=== PATIENT | male | born 1965 | race African-American/Black ===

== ENCOUNTER 2016-04-05 11:51 | Inpatient (IN) | payer BC ==
[2016-04-05 13:02] VITALS: BMI 22.1
--- NOTE | 2016-04-05 18:29 | HP ---
Admission [facility] Chief Complaint: I WANT TO GO TO REHAB Allergies/Adverse Reactions: Allergies Allergy/AdvReac Type Severity Reaction Status Date / Time Penicillins Allergy Verified 04/05/16 18:24 Pork/Porcine Containing Allergy Verified 04/05/16 18:24 Products History of Present Illness: 51 YEARS OLD MALE WITH LONG HISTORY OF COCAINE NICOTINE DEPENDENCE, HAS ASTHMA S /P SPINAL SURGERY, S/P LEFT KNEE AND FOOT FX, SCHIZOPHRENIA LONGEST SOBRIETY 16 YEARS IS ADMITTED TO REHAB Exam Limitations: No Limitations - Ebola screening Have you traveled outside of the country in the last 21 days: No Have you had contact with anyone from an Ebola affected area: No Have you been sick,other than usual withdrawal symptoms: No Do you have a fever: No - Review of Systems Constitutional: Loss of Appetite, Unexplained wgt Loss EENT: reports: Other (EYE GLASSES) Respiratory: reports: Cough, SOB with Exertion Cardiac: reports: No Symptoms Reported GI: reports: No Symptoms Reported : reports: No Symptoms Reported Musculoskeletal: reports: Back Pain, Joint Pain Integumentary: reports: No Symptoms Reported Neuro: reports: No Symptoms reported Endocrine: reports: No Symptoms Reported Hematology: reports: No Symptoms Reported Psychiatric: reports: Judgement Intact, Mood/Affect Appropiate, Orientated x3 Other Systems: Reviewed and Negative Patient History - Patient Medical History Hx Anemia: No Hx Asthma: Yes Hx Chronic Obstructive Pulmonary Disease (COPD): No Hx Cancer: No Hx Cardiac Disorders: No Hx Congestive Heart Failure: No Hx Hypertension: No Hx Hypercholesterolemia: No Hx Pacemaker: No HX Cerebrovascular Accident: No Hx Seizures: No Hx Dementia: No Hx Diabetes: No Hx Gastrointestinal Disorders: No Hx Liver Disease: No Hx Genitourinary Disorders: No Hx Sexually Transmitted Disorders: No Hx Renal Disease (ESRD): No Hx Thyroid Disease: No Hx Human Immunodeficiency Virus (HIV): No Hx Hepatitis C: No Hx Depression: No Hx Suicide Attempt: No Hx Bipolar Disorder: No Hx Schizophrenia: Yes (AUDITORY HALLUCINATION) - Patient Surgical History Past Surgical History: Yes Hx Neurologic Surgery: Yes (1992 SPINE) Hx Cataract Extraction: No Hx Cardiac Surgery: No Hx Lung Surgery: No Hx Breast Surgery: No Hx Breast Biopsy: No Hx Abdominal Surgery: No Hx Appendectomy: No Hx Cholecystectomy: No Hx Genitourinary Surgery: No Hx Orthopedic Surgery: Yes (KNEE 1983) Other Surgical History: LEFT FOOT 2000 Anesthesia Reaction: No - PPD History Previous Implant?: Yes Documented Results: Negative w/o proof Implanted On Prior [facility] Admission?: No PPD to be Administered?: Yes - Smoking Cessation Smoking history: Current every day smoker Have you smoked in the past 12 months: Yes Aproximately how many cigarettes per day: 10 Cigars Per Day: 0 Hx Chewing Tobacco Use: No Initiated information on smoking cessation: Yes 'Breaking Loose' booklet given: 04/05/16 - Substance & Tx. History Hx Alcohol Use: No Hx Substance Use: Yes Substance Use Type: Cocaine Hx Substance Use Treatment: Yes - Substances Abused Cocaine Route: Smoking Frequency: Daily Amount used: 1 OZ Age of first use: 33 Date of Last Use: 04/04/16 Family Disease History - Family Disease History Family Disease History: Heart Disease: Father, [place]: Grandparent, Mother Admission Physical Exam [facility] - Vital Signs Vital Signs: Vital Signs - 24 hr 04/05/16 12:59 Pulse Rate 74 Respiratory 18 Rate Blood Pressure 138/89 - Physical General Appearance: Yes: No Apparent Distress, Appropriately Dressed, Thin HEENTM: Yes: Hearing grossly Normal, Normal ENT Inspection, Normocephalic, Normal Voice Respiratory: Yes: Lungs Clear, Normal Breath Sounds, No Accessory Muscle Use, Wheezing, Expiration Neck: Yes: Supple, Trachea in good position Breast: Yes: Breasts Symetrical Cardiology: Yes: Regular Rhythm, Regular Rate, S1, S2 Abdominal: Yes: Non Tender, Soft Genitourinary: Yes: Within Normal Limits Back: Yes: Normal Inspection Musculoskeletal: Yes: full range of Motion, Gait Steady, Back pain, Muscle Pain Extremities: Yes: Normal Range of Motion, Non-Tender Neurological: Yes: Fully Oriented, Alert, Motor Strength 5/5, Normal Response Integumentary: Yes: Warm Lymphatic: Yes: Within Normal Limits - Diagnostic (1) Cocaine dependence, uncomplicated Current Visit: Yes Status: Acute (2) Nicotine dependence Current Visit: Yes Status: Acute Qualifiers: Nicotine product type: cigarettes Substance use status: uncomplicated Qualified Code(s): F17.210 - Nicotine dependence, cigarettes, uncomplicated (3) Asthma Current Visit: Yes Status: Acute Qualifiers: Asthma severity: mild persistent Asthma complication type: with status asthmaticus Qualified Code(s): J45.32 - Mild persistent asthma with status asthmaticus (4) S/P cervical spinal fusion Current Visit: Yes Status: Resolved (5) S/P left knee surgery Current Visit: Yes Status: Resolved (6) Status post left foot surgery Current Visit: Yes Status: Resolved (7) Weight loss Current Visit: Yes Status: Acute Cleared for Admission S - Detox or Rehab [facility] Level of Care: Observation Bed Claeared for Rehab Admission: Yes [facility] Breath Alcohol Content Breath Alcohol Content: 0 Urine Drug Screen - Results Drug Screen Negative: No Urine Drug Screen Results: CHASE-Cocaine
[2016-04-05] MEDS ORDERED: P-EPHED 60MG/TRIPROLIDI 2.5MG TABLET PO PRN (18:37)
[2016-04-05] MEDS ORDERED: IBUPROFEN 400 MG TABLET (FP) PO PRN (18:37)
[2016-04-05] MEDS ORDERED: MAGNESIUM HYDROX 2400MG/30ML ORAL SUSPENSION 30 ML CUP PO PRN (18:37)
[2016-04-05] MEDS ORDERED: MAGNESIUM CITRATE 300 ML BOTTLE PO PRN (18:37)
[2016-04-05] MEDS ORDERED: guaiFENesin/D-METHORPHAN HB 10 ML UNIT-DOSE CUPS PO PRN (18:37)
[2016-04-05] MEDS ORDERED: MAG HYDROX/AL HYDROX/SIMETH 30 ML UNIT-DOSE CUP PO PRN (18:37)
[2016-04-05] MEDS ORDERED: LOPERAMIDE HCL 2 MG CAPSULE PO PRN (18:37)
[2016-04-05] MEDS ORDERED: NICOTINE 14 MG/24 HOURS TOPICAL PATCH TD PRN (18:37)
[2016-04-05] MEDS ORDERED: MENTHOL/PHENOL 1 EACH UD MM PRN (18:37)
[2016-04-05] MEDS ORDERED: NICOTINE POLACRILEX 2 MG GUM BC PRN (18:37)
[2016-04-05] MEDS ORDERED: ACETAMINOPHEN 325 MG TABLET (FP) PO PRN (18:37)
[2016-04-05] MEDS ORDERED: hydrOXYzine PAMOATE 50 MG CAPSULE (FP) PO PRN (18:37)
[2016-04-05] MEDS ORDERED: ALBUTEROL SO4 2.5/IPRATROPIUM 0.5 INH SOL 3 ML VIAL.NEB. NEB PRN (18:39)
[2016-04-05 20:16] LABS: URINE APPEARANCE SLCLOUDY; URINE BILIRUBIN NEGATIVE (NEGATIVE); URINE BLOOD NEGATIVE (NEGATIVE); URINE COLOR YELLOW; URINE GLUCOSE (UA) NEGATIVE (NEGATIVE); URINE KETONE NEGATIVE (NEGATIVE); URINE NITRITE NEGATIVE (NEGATIVE); URINE PROTEIN NEGATIVE (NEGATIVE); URINE UROBILINOGEN NEGATIVE E.U./dl (0.2-1.0)
[2016-04-05 20:26] LABS: URINE LEUK ESTERASE 2+ (NEGATIVE)
[2016-04-05 20:47] LABS: URINE HYALINE CAST 2 /lpf; URINE MUCUS RARE; URINE RBC 3 /hpf (0-3); URINE WBC 42 /hpf (3-5)
[2016-04-05] MEDS: THIAMINE HCL 100 MG TABLET (FP) PO SCH (21:34)
[2016-04-05] MEDS: MINERAL OIL/PETROLAT/WATER TOPICAL CREAM 113 GM JAR TP SCH (21:34)
[2016-04-05] MEDS: TUBERCULIN PPD 5 TU/0.1ML VIAL ID ONE (21:35)
[2016-04-06] MEDS: TUBERCULIN PPD 5 TU/0.1ML VIAL ID ONE (00:25)
[2016-04-06] MEDS: PRENATAL VITAMINS W/ FOLIC ACID TABLET (FP) PO SCH (09:51)
[2016-04-06 10:35] LABS: ALBUMIN 4.1 g/dl (3.4-5.0); ALK PHOS 124 U/L (45-117); ANION GAP 6 (8-16); BILIRUBIN,TOTAL 0.4 mg/dL (0.2-1.0); CO2 28 mmol/L (21-32); CREATININE 1.2 mg/dL (0.7-1.3); GLUCOSE,RANDOM 107 mg/dL (74-106); SGOT/AST 30 U/L (15-37); SGPT/ALT 36 U/L (12-78); TOT PROT 7.2 g/dl (6.4-8.2)
[2016-04-06 10:56] LABS: HIV 1 & 2 AB NEGATIVE; HIV 1 AGp24 NEGATIVE
[2016-04-06 11:12] LABS: MCH 32.8 pg (25.7-33.7); MCHC 33.3 g/dl (32.0-35.9); MEAN CELL VOLUME 98.5 fl (80-96); MEAN PLT VOLUME 9.9 fl (7.5-11.1); PLATELET COUNT 157 K/MM3 (134-434); RDW 13.9 % (11.9-15.9); WHITE BLOOD COUNT 4.7 K/mm3 (4.0-10.0)
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
[2016-04-06] MEDS: ALBUTEROL SO4 6.7 GM HFA INHALER IH PRN (15:29)
[2016-04-06] MEDS: MINERAL OIL/PETROLAT/WATER TOPICAL CREAM 113 GM JAR TP SCH (21:46)
[2016-04-06] MEDS: THIAMINE HCL 100 MG TABLET (FP) PO SCH (21:47)
[2016-04-07] MEDS: PRENATAL VITAMINS W/ FOLIC ACID TABLET (FP) PO SCH (09:31)
[2016-04-07] MEDS: ALBUTEROL SO4 6.7 GM HFA INHALER IH PRN (09:32)
[2016-04-07] MEDS: THIAMINE HCL 100 MG TABLET (FP) PO SCH (21:31)
[2016-04-07] MEDS: MINERAL OIL/PETROLAT/WATER TOPICAL CREAM 113 GM JAR TP SCH (21:32)
[2016-04-08] MEDS: PRENATAL VITAMINS W/ FOLIC ACID TABLET (FP) PO SCH (10:08)
[2016-04-08] MEDS: ALBUTEROL SO4 6.7 GM HFA INHALER IH PRN (10:08)
[2016-04-08] MEDS: MINERAL OIL/PETROLAT/WATER TOPICAL CREAM 113 GM JAR TP SCH (21:26)
[2016-04-08] MEDS: diphenhydrAMINE HCL 50 MG CAPSULE PO PRN (21:26)
[2016-04-08] MEDS: THIAMINE HCL 100 MG TABLET (FP) PO SCH (21:26)
--- NOTE | 2016-04-09 09:47 | EKG ---
Test Reason : Blood Pressure : / mmHG Vent. Rate : 067 BPM Atrial Rate : 067 BPM P-R Int : 162 ms QRS Dur : 086 ms QT Int : 382 ms P-R-T Axes : 072 071 070 degrees QTc Int : 403 ms NORMAL SINUS RHYTHM MINIMAL VOLTAGE CRITERIA FOR LVH, MAY BE NORMAL VARIANT ST ELEVATION, CONSIDER EARLY REPOLARIZATION, PERICARDITIS, OR INJURY ABNORMAL ECG NO PREVIOUS ECGS AVAILABLE Confirmed by AMI HPAM MD ([id number]) on 04/07/2016 10:35:03 AM Also confirmed by AMI PHAM MD ([id number]), society editor AIDEN LOUIE ([id number]) on 04/09/2016 9:47:16 AM Referred By: Daniela Solares Confirmed By:AMI PHAM MD
[2016-04-09] MEDS: ALBUTEROL SO4 6.7 GM HFA INHALER IH PRN (09:48)
[2016-04-09] MEDS: PRENATAL VITAMINS W/ FOLIC ACID TABLET (FP) PO SCH (09:48)
--- NOTE | 2016-04-09 14:16 | PN ---
Psychiatric Progress Note Vital Signs: Vital Signs Period Temp Pulse Resp BP Sys/Novak Pulse Ox Last 24 Hr 97.8 F 64 18-18 126/85 Date of Session: 04/09/16 Chief Complaint:: "I hear voices" HPI: Patient is addresssing cocaine, cannabis use comorbid Schizophrenia. ROS: Asthma on meds, 2 plates on C4, C5 vertebrae s/p incident in 1992, pins to left knee and left foot in 1983. Current Medications: Active Medications Generic Name Dose Route Start Last Admin Trade Name Freq PRN Reason Stop Dose Admin Acetaminophen 650 mg 04/05/16 18:37 Tylenol - PO Q4H PRN PAIN Al Hydroxide/Mg Hydroxide 30 ml 04/05/16 18:37 Mylanta Oral Suspension - PO Q6H PRN DYSPEPSIA Albuterol Sulfate 2 puff 04/05/16 18:38 04/09/16 09:48 Ventolin Hfa Inhaler - IH 2 puff Q4H PRN Administration SHORT OF BREATH/WHEEZING Albuterol/Ipratropium 1 amp 04/05/16 18:39 Duoneb - NEB Q6H PRN SHORTNESS OF BREATH Budesonide/Formoterol Fumarate 2 puff 04/09/16 22:00 Symbicort 80/4.5mcg - IH BID AMISHA Colloidal Oatmeal 1 applic 04/05/16 20:03 Aveeno Soap - TP DAILY PRN HYGEINE Diphenhydramine HCl 50 mg 04/05/16 18:37 04/08/16 21:26 Benadryl - PO 50 mg HSMR1 PRN Administration INSOMNIA Eucalyptus/Menthol/Phenol/Sorbitol 1 each 04/05/16 18:37 Cepastat Lozenge - MM Q4H PRN SORE THROAT Guaifenesin 10 ml 04/05/16 18:37 Robitussin Dm - PO Q6H PRN COUGH Hydroxyzine Pamoate 50 mg 04/05/16 18:37 Vistaril - PO Q4H PRN AGITATION Ibuprofen 400 mg 04/05/16 18:37 Motrin - PO Q6H PRN SEVERE PAIN Loperamide HCl 4 mg 04/05/16 18:37 Imodium - PO Q6H PRN DIARRHEA Magnesium Citrate 300 ml 04/05/16 18:37 Citroma - PO Q48H PRN CONSTIPATION Magnesium Hydroxide 30 ml 04/05/16 18:37 Milk Of Magnesia - PO DAILY PRN CONSTIPATION Multi-Ingredient Lotion 1 applic 04/05/16 22:00 04/08/16 21:26 Eucerin (Small Jar) - TP 1 applic HS AMISHA Administration Naproxen 500 mg 04/09/16 22:00 Naprosyn - PO BID AMISHA Nicotine 14 mg 04/05/16 18:37 Nicoderm Patch - TD DAILY PRN WITHDRAWAL(CONT SUBST) Nicotine Polacrilex 2 mg 04/05/16 18:37 Nicorette Gum - BC Q2H PRN NICOTINE REPLACEMENT RX Multivit/Folic Acid/Iron 1 tab 04/06/16 10:00 04/09/16 09:48 Vitamins ([facility]) - PO 1 tab DAILY AMISHA Administration Pseudoephedrine/Triprolidine 1 combo 04/05/16 18:37 Actifed - PO TID PRN NASAL CONGESTION Quetiapine Fumarate 50 mg 04/09/16 22:00 Seroquel - PO HS AMISHA Quetiapine Fumarate 25 mg 04/09/16 14:00 Seroquel - PO Q4H PRN AGITATION Thiamine HCl 100 mg 04/05/16 22:00 04/08/16 21:26 Vitamin B1 - PO 100 mg HS AMISHA Administration Medication(s) Change(s): add Seroquel 25 mg po am and 50 po hs, PRN 25 mg po q 4hrs. Current Side Effect: No Lab tests ordered: No Lab tests reviewed: Yes Provider note:: Reviewed the chart, 's admission note appreciated, met with the patient, he reports has been hearing voces for the pasr 2 years , hears the male voices "sounds like me" telling him to do things, he reports he has a "bad temper", often to the fights, having mood swings being irritable and angry. States that voices come when he not on drugs. Reveiwed indications and properties of Seroquel with the the patient , will start PRN and 25 mg po am and 50 mg po hs, psychoeducation provided. PAtient was encouraged to reach out to the staff for help with any negative thoughts/feelings he might experince.Will monitor progress as neeed. Total face to face time:: 35 Mental Status Exam - Mental Status Exam Alert and Oriented to: Time, Place, Person Cognitive Function: Good Patient Appearance: Well Groomed Mood: Irritable Patient Behavior: Cooperative Speech Pattern: Clear Voice Loudness: Normal Thought Process: Goal Oriented Thought Disorder: Not Present Hallucinations: Auditory Suicidal Ideation: Denies Homicidal Ideation: Denies Insight/Judgement: Fair Sleep: Fair Appetite: Fair Muscle strength/Tone: Normal Gait/Station: Normal Psychiatric Treatment Plan - Problem List (1) Asthma Current Visit: Yes Qualifiers: Asthma severity: mild persistent Asthma complication type: with status asthmaticus Qualified Code(s): J45.32 - Mild persistent asthma with status asthmaticus (2) Cannabis dependence Current Visit: Yes (3) Cocaine dependence, uncomplicated Current Visit: Yes (4) Nicotine dependence Current Visit: Yes Qualifiers: Nicotine product type: cigarettes Substance use status: uncomplicated Qualified Code(s): F17.210 - Nicotine dependence, cigarettes, uncomplicated (5) Schizophrenia spectrum disorder with psychotic disorder type not yet determined Current Visit: Yes (6) S/P cervical spinal fusion Current Visit: Yes (7) S/P left knee surgery Current Visit: Yes
[2016-04-09] MEDS: QUEtiapine FUMARATE 25 MG TABLET (FP) PO PRN (16:52)
[2016-04-09] MEDS: BUDESONIDE/FORMETEROL FUMARATE 80/4.5 mcg INHALER IH SCH (21:31)
[2016-04-09] MEDS: NAPROXEN 500 MG TABLET (FP) PO SCH (21:31)
[2016-04-09] MEDS: QUEtiapine FUMARATE 50 MG TABLET PO SCH (21:31)
[2016-04-09] MEDS: THIAMINE HCL 100 MG TABLET (FP) PO SCH (21:32)
[2016-04-09] MEDS: MINERAL OIL/PETROLAT/WATER TOPICAL CREAM 113 GM JAR TP SCH (21:32)
[2016-04-10] MEDS: QUEtiapine FUMARATE 25 MG TABLET (FP) PO SCH (09:52)
[2016-04-10] MEDS: PRENATAL VITAMINS W/ FOLIC ACID TABLET (FP) PO SCH (09:52)
[2016-04-10] MEDS: BUDESONIDE/FORMETEROL FUMARATE 80/4.5 mcg INHALER IH SCH ×2 (09:52→21:34)
[2016-04-10] MEDS: NAPROXEN 500 MG TABLET (FP) PO SCH ×2 (09:52→21:34)
[2016-04-10] MEDS: MINERAL OIL/PETROLAT/WATER TOPICAL CREAM 113 GM JAR TP SCH (21:34)
[2016-04-10] MEDS: THIAMINE HCL 100 MG TABLET (FP) PO SCH (21:35)
[2016-04-10] MEDS: diphenhydrAMINE HCL 50 MG CAPSULE PO PRN (21:35)
[2016-04-10] MEDS: QUEtiapine FUMARATE 50 MG TABLET PO SCH (21:35)
[2016-04-11] MEDS: BUDESONIDE/FORMETEROL FUMARATE 80/4.5 mcg INHALER IH SCH ×2 (10:01→21:40)
[2016-04-11] MEDS: PRENATAL VITAMINS W/ FOLIC ACID TABLET (FP) PO SCH (10:01)
[2016-04-11] MEDS: NAPROXEN 500 MG TABLET (FP) PO SCH ×2 (10:02→21:40)
[2016-04-11] MEDS: QUEtiapine FUMARATE 25 MG TABLET (FP) PO SCH (10:02)
[2016-04-11] MEDS: QUEtiapine FUMARATE 25 MG TABLET (FP) PO PRN (15:00)
[2016-04-11] MEDS: THIAMINE HCL 100 MG TABLET (FP) PO SCH (21:40)
[2016-04-11] MEDS: QUEtiapine FUMARATE 50 MG TABLET PO SCH (21:40)
[2016-04-11] MEDS: MINERAL OIL/PETROLAT/WATER TOPICAL CREAM 113 GM JAR TP SCH (21:41)
[2016-04-11] MEDS: diphenhydrAMINE HCL 50 MG CAPSULE PO PRN (21:41)
[2016-04-12] MEDS: BUDESONIDE/FORMETEROL FUMARATE 80/4.5 mcg INHALER IH SCH ×2 (10:01→21:46)
[2016-04-12] MEDS: PRENATAL VITAMINS W/ FOLIC ACID TABLET (FP) PO SCH (10:02)
[2016-04-12] MEDS: NAPROXEN 500 MG TABLET (FP) PO SCH ×2 (10:02→21:45)
[2016-04-12] MEDS: QUEtiapine FUMARATE 25 MG TABLET (FP) PO SCH (10:02)
--- NOTE | 2016-04-12 11:46 | PN ---
Psychiatric Progress Note Vital Signs: Vital Signs Period Temp Pulse Resp BP Sys/Novak Pulse Ox Last 24 Hr 97.4 F 66 18-18 135/76 Date of Session: 04/12/16 Chief Complaint:: "I still hear voices" HPI: Patient is addresssing cocaine, cannabis use comorbid Schizophrenia spectrum disorder with psychotic disorder type yet not identified. ROS: WNL Current Medications: Active Medications Generic Name Dose Route Start Last Admin Trade Name Freq PRN Reason Stop Dose Admin Acetaminophen 650 mg 04/05/16 18:37 Tylenol - PO Q4H PRN PAIN Al Hydroxide/Mg Hydroxide 30 ml 04/05/16 18:37 Mylanta Oral Suspension - PO Q6H PRN DYSPEPSIA Albuterol Sulfate 2 puff 04/05/16 18:38 04/09/16 09:48 Ventolin Hfa Inhaler - IH 2 puff Q4H PRN Administration SHORT OF BREATH/WHEEZING Albuterol/Ipratropium 1 amp 04/05/16 18:39 Duoneb - NEB Q6H PRN SHORTNESS OF BREATH Budesonide/Formoterol Fumarate 2 puff 04/09/16 22:00 04/12/16 10:01 Symbicort 80/4.5mcg - IH 2 puff BID AMISHA Administration Colloidal Oatmeal 1 applic 04/05/16 20:03 Aveeno Soap - TP DAILY PRN HYGEINE Diphenhydramine HCl 50 mg 04/05/16 18:37 04/11/16 21:41 Benadryl - PO 50 mg HSMR1 PRN Administration INSOMNIA Eucalyptus/Menthol/Phenol/Sorbitol 1 each 04/05/16 18:37 Cepastat Lozenge - MM Q4H PRN SORE THROAT Guaifenesin 10 ml 04/05/16 18:37 Robitussin Dm - PO Q6H PRN COUGH Hydroxyzine Pamoate 50 mg 04/05/16 18:37 Vistaril - PO Q4H PRN AGITATION Loperamide HCl 4 mg 04/05/16 18:37 Imodium - PO Q6H PRN DIARRHEA Magnesium Citrate 300 ml 04/05/16 18:37 Citroma - PO Q48H PRN CONSTIPATION Magnesium Hydroxide 30 ml 04/05/16 18:37 Milk Of Magnesia - PO DAILY PRN CONSTIPATION Multi-Ingredient Lotion 1 applic 04/05/16 22:00 04/11/16 21:41 Eucerin (Small Jar) - TP Not Given HS AMISHA Naproxen 500 mg 04/09/16 22:00 04/12/16 10:02 Naprosyn - PO 500 mg BID AMISHA Administration Nicotine 14 mg 04/05/16 18:37 Nicoderm Patch - TD DAILY PRN WITHDRAWAL(CONT SUBST) Nicotine Polacrilex 2 mg 04/05/16 18:37 Nicorette Gum - BC Q2H PRN NICOTINE REPLACEMENT RX Multivit/Folic Acid/Iron 1 tab 04/06/16 10:00 04/12/16 10:02 Vitamins ([facility]) - PO 1 tab DAILY AMISHA Administration Pseudoephedrine/Triprolidine 1 combo 04/05/16 18:37 Actifed - PO TID PRN NASAL CONGESTION Quetiapine Fumarate 50 mg 04/09/16 22:00 04/11/16 21:40 Seroquel - PO 50 mg HS AMISHA Administration Quetiapine Fumarate 25 mg 04/09/16 14:00 04/11/16 15:00 Seroquel - PO 25 mg Q4H PRN Administration AGITATION Quetiapine Fumarate 25 mg 04/10/16 10:00 04/12/16 10:02 Seroquel - PO 25 mg DAILY AMISHA Administration Thiamine HCl 100 mg 04/05/16 22:00 04/11/16 21:40 Vitamin B1 - PO 100 mg HS AMISHA Administration Medication(s) Change(s): increase Seroquel 50 mg po am and 100 mg po hs Current Side Effect: No Lab tests ordered: No Lab tests reviewed: Yes Provider note:: Patient was sen today, he continued to c/o auditory hallucinations, hears male voices telling him that people talking about him, patient reports that voices inside his head and when asked if it his thoughts he repeated that this is someone's voice. He denies suicidal and homicidal thoughts, reports that voices started 2 years ago before he was using drugs , states he when he was using it helped with hallucinations. Patien reports no major side-effects from seroquel, "just a little sedation" which subsides after 10-15 min. Discussed indication and properties of Seroquel, dicsussed treatment plan, will increase seroquel 50 mg am and 100 mg po hs, patient agreed with the plan, will continue to monitor improvement/progress. Total face to face time:: 20 Mental Status Exam - Mental Status Exam Alert and Oriented to: Time, Place, Person Cognitive Function: Grossly Intact Mood: Sad, Anxious, Irritable Affect: Mood Congruent Patient Behavior: Appropriate Speech Pattern: Appropriate Voice Loudness: Normal Thought Process: Intact Thought Disorder: Paranoid Ideation Hallucinations: Auditory Suicidal Ideation: Denies Homicidal Ideation: Denies Insight/Judgement: Fair Sleep: Fair Appetite: Fair Muscle strength/Tone: Normal Gait/Station: Normal Psychiatric Treatment Plan - Problem List (1) Asthma Current Visit: Yes Qualifiers: Asthma severity: mild persistent Asthma complication type: with status asthmaticus Qualified Code(s): J45.32 - Mild persistent asthma with status asthmaticus (2) Cannabis dependence Current Visit: Yes (3) Cocaine dependence, uncomplicated Current Visit: Yes (4) Nicotine dependence Current Visit: Yes Qualifiers: Nicotine product type: cigarettes Substance use status: uncomplicated Qualified Code(s): F17.210 - Nicotine dependence, cigarettes, uncomplicated (5) Schizophrenia spectrum disorder with psychotic disorder type not yet determined Current Visit: Yes (6) S/P cervical spinal fusion Current Visit: Yes (7) S/P left knee surgery Current Visit: Yes
[2016-04-12] MEDS: diphenhydrAMINE HCL 50 MG CAPSULE PO PRN (21:45)
[2016-04-12] MEDS: QUEtiapine FUMARATE 100 MG TABLET (FP) PO SCH (21:45)
[2016-04-12] MEDS: MINERAL OIL/PETROLAT/WATER TOPICAL CREAM 113 GM JAR TP SCH (21:46)
[2016-04-12] MEDS: THIAMINE HCL 100 MG TABLET (FP) PO SCH (21:47)
[2016-04-13] MEDS: BUDESONIDE/FORMETEROL FUMARATE 80/4.5 mcg INHALER IH SCH ×2 (09:42→21:39)
[2016-04-13] MEDS: QUEtiapine FUMARATE 50 MG TABLET PO SCH (09:42)
[2016-04-13] MEDS: PRENATAL VITAMINS W/ FOLIC ACID TABLET (FP) PO SCH (09:42)
[2016-04-13] MEDS: NAPROXEN 500 MG TABLET (FP) PO SCH ×2 (09:43→21:39)
[2016-04-13] MEDS: QUEtiapine FUMARATE 100 MG TABLET (FP) PO SCH (21:39)
[2016-04-13] MEDS: diphenhydrAMINE HCL 50 MG CAPSULE PO PRN (21:39)
[2016-04-13] MEDS: THIAMINE HCL 100 MG TABLET (FP) PO SCH (21:39)
[2016-04-13] MEDS: MINERAL OIL/PETROLAT/WATER TOPICAL CREAM 113 GM JAR TP SCH (21:40)
[2016-04-14] MEDS: PRENATAL VITAMINS W/ FOLIC ACID TABLET (FP) PO SCH (09:39)
[2016-04-14] MEDS: BUDESONIDE/FORMETEROL FUMARATE 80/4.5 mcg INHALER IH SCH ×2 (09:39→21:33)
[2016-04-14] MEDS: QUEtiapine FUMARATE 50 MG TABLET PO SCH (09:39)
[2016-04-14] MEDS: NAPROXEN 500 MG TABLET (FP) PO SCH ×2 (09:39→21:34)
[2016-04-14] MEDS: THIAMINE HCL 100 MG TABLET (FP) PO SCH (21:34)
[2016-04-14] MEDS: QUEtiapine FUMARATE 100 MG TABLET (FP) PO SCH (21:34)
[2016-04-14] MEDS: diphenhydrAMINE HCL 50 MG CAPSULE PO PRN (21:35)
[2016-04-14] MEDS: MINERAL OIL/PETROLAT/WATER TOPICAL CREAM 113 GM JAR TP SCH (21:35)
[2016-04-15] MEDS: QUEtiapine FUMARATE 50 MG TABLET PO SCH (09:54)
[2016-04-15] MEDS: PRENATAL VITAMINS W/ FOLIC ACID TABLET (FP) PO SCH (09:54)
[2016-04-15] MEDS: NAPROXEN 500 MG TABLET (FP) PO SCH ×2 (09:54→21:31)
[2016-04-15] MEDS: BUDESONIDE/FORMETEROL FUMARATE 80/4.5 mcg INHALER IH SCH ×2 (09:54→21:30)
[2016-04-15] MEDS: MINERAL OIL/PETROLAT/WATER TOPICAL CREAM 113 GM JAR TP SCH (21:30)
[2016-04-15] MEDS: QUEtiapine FUMARATE 100 MG TABLET (FP) PO SCH (21:31)
[2016-04-15] MEDS: THIAMINE HCL 100 MG TABLET (FP) PO SCH (21:31)
[2016-04-15] MEDS: diphenhydrAMINE HCL 50 MG CAPSULE PO PRN (21:31)
[2016-04-16] MEDS: BUDESONIDE/FORMETEROL FUMARATE 80/4.5 mcg INHALER IH SCH ×2 (09:44→21:47)
[2016-04-16] MEDS: QUEtiapine FUMARATE 50 MG TABLET PO SCH (09:44)
[2016-04-16] MEDS: PRENATAL VITAMINS W/ FOLIC ACID TABLET (FP) PO SCH (09:44)
[2016-04-16] MEDS: NAPROXEN 500 MG TABLET (FP) PO SCH ×2 (09:44→21:47)
[2016-04-16] MEDS: MINERAL OIL/PETROLAT/WATER TOPICAL CREAM 113 GM JAR TP SCH (21:46)
[2016-04-16] MEDS: QUEtiapine FUMARATE 100 MG TABLET (FP) PO SCH (21:47)
[2016-04-16] MEDS: THIAMINE HCL 100 MG TABLET (FP) PO SCH (21:47)
[2016-04-16] MEDS: diphenhydrAMINE HCL 50 MG CAPSULE PO PRN (21:47)
[2016-04-17] MEDS: NAPROXEN 500 MG TABLET (FP) PO SCH ×2 (10:14→21:43)
[2016-04-17] MEDS: PRENATAL VITAMINS W/ FOLIC ACID TABLET (FP) PO SCH (10:14)
[2016-04-17] MEDS: QUEtiapine FUMARATE 50 MG TABLET PO SCH (10:15)
[2016-04-17] MEDS: BUDESONIDE/FORMETEROL FUMARATE 80/4.5 mcg INHALER IH SCH ×2 (10:15→21:43)
[2016-04-17] MEDS: THIAMINE HCL 100 MG TABLET (FP) PO SCH (21:43)
[2016-04-17] MEDS: QUEtiapine FUMARATE 100 MG TABLET (FP) PO SCH (21:43)
[2016-04-17] MEDS: MINERAL OIL/PETROLAT/WATER TOPICAL CREAM 113 GM JAR TP SCH (21:43)
[2016-04-17] MEDS: diphenhydrAMINE HCL 50 MG CAPSULE PO PRN (21:44)
[2016-04-18] MEDS: NAPROXEN 500 MG TABLET (FP) PO SCH ×2 (09:54→21:48)
[2016-04-18] MEDS: PRENATAL VITAMINS W/ FOLIC ACID TABLET (FP) PO SCH (09:54)
[2016-04-18] MEDS: BUDESONIDE/FORMETEROL FUMARATE 80/4.5 mcg INHALER IH SCH ×2 (09:54→21:48)
[2016-04-18] MEDS: QUEtiapine FUMARATE 50 MG TABLET PO SCH (09:55)
[2016-04-18] MEDS: QUEtiapine FUMARATE 100 MG TABLET (FP) PO SCH (21:48)
[2016-04-18] MEDS: THIAMINE HCL 100 MG TABLET (FP) PO SCH (21:48)
[2016-04-18] MEDS: MINERAL OIL/PETROLAT/WATER TOPICAL CREAM 113 GM JAR TP SCH (21:48)
[2016-04-19] MEDS: BUDESONIDE/FORMETEROL FUMARATE 80/4.5 mcg INHALER IH SCH ×2 (09:57→21:41)
[2016-04-19] MEDS: PRENATAL VITAMINS W/ FOLIC ACID TABLET (FP) PO SCH (09:58)
[2016-04-19] MEDS: NAPROXEN 500 MG TABLET (FP) PO SCH ×2 (09:58→21:41)
[2016-04-19] MEDS: QUEtiapine FUMARATE 50 MG TABLET PO SCH (09:58)
[2016-04-19] MEDS: MINERAL OIL/PETROLAT/WATER TOPICAL CREAM 113 GM JAR TP SCH (21:40)
[2016-04-19] MEDS: diphenhydrAMINE HCL 50 MG CAPSULE PO PRN (21:41)
[2016-04-19] MEDS: THIAMINE HCL 100 MG TABLET (FP) PO SCH (21:41)
[2016-04-19] MEDS: QUEtiapine FUMARATE 100 MG TABLET (FP) PO SCH (21:41)
[2016-04-20] MEDS: BUDESONIDE/FORMETEROL FUMARATE 80/4.5 mcg INHALER IH SCH ×2 (10:03→21:55)
[2016-04-20] MEDS: PRENATAL VITAMINS W/ FOLIC ACID TABLET (FP) PO SCH (10:03)
[2016-04-20] MEDS: QUEtiapine FUMARATE 50 MG TABLET PO SCH (10:03)
[2016-04-20] MEDS: NAPROXEN 500 MG TABLET (FP) PO SCH ×2 (10:03→21:55)
[2016-04-20] MEDS: THIAMINE HCL 100 MG TABLET (FP) PO SCH (21:55)
[2016-04-20] MEDS: QUEtiapine FUMARATE 100 MG TABLET (FP) PO SCH (21:55)
[2016-04-20] MEDS: MINERAL OIL/PETROLAT/WATER TOPICAL CREAM 113 GM JAR TP SCH (21:56)
[2016-04-21] MEDS: QUEtiapine FUMARATE 50 MG TABLET PO SCH (09:41)
[2016-04-21] MEDS: PRENATAL VITAMINS W/ FOLIC ACID TABLET (FP) PO SCH (09:41)
[2016-04-21] MEDS: BUDESONIDE/FORMETEROL FUMARATE 80/4.5 mcg INHALER IH SCH ×2 (09:41→21:34)
[2016-04-21] MEDS: NAPROXEN 500 MG TABLET (FP) PO SCH ×2 (09:41→21:33)
[2016-04-21] MEDS: QUEtiapine FUMARATE 100 MG TABLET (FP) PO SCH (21:33)
[2016-04-21] MEDS: MINERAL OIL/PETROLAT/WATER TOPICAL CREAM 113 GM JAR TP SCH (21:33)
[2016-04-21] MEDS: THIAMINE HCL 100 MG TABLET (FP) PO SCH (21:33)
[2016-04-22] MEDS: QUEtiapine FUMARATE 50 MG TABLET PO SCH (09:48)
[2016-04-22] MEDS: PRENATAL VITAMINS W/ FOLIC ACID TABLET (FP) PO SCH (09:48)
[2016-04-22] MEDS: NAPROXEN 500 MG TABLET (FP) PO SCH ×2 (09:48→21:57)
[2016-04-22] MEDS: BUDESONIDE/FORMETEROL FUMARATE 80/4.5 mcg INHALER IH SCH ×2 (09:48→21:57)
[2016-04-22] MEDS: COLLOIDAL OATMEAL 1 BAR EACH TP PRN (09:56)
[2016-04-22] MEDS: MINERAL OIL/PETROLAT/WATER TOPICAL CREAM 113 GM JAR TP SCH (21:57)
[2016-04-22] MEDS: THIAMINE HCL 100 MG TABLET (FP) PO SCH (21:57)
[2016-04-22] MEDS: QUEtiapine FUMARATE 100 MG TABLET (FP) PO SCH (21:57)
[2016-04-23] MEDS: QUEtiapine FUMARATE 50 MG TABLET PO SCH (10:20)
[2016-04-23] MEDS: PRENATAL VITAMINS W/ FOLIC ACID TABLET (FP) PO SCH (10:20)
[2016-04-23] MEDS: BUDESONIDE/FORMETEROL FUMARATE 80/4.5 mcg INHALER IH SCH ×2 (10:20→21:50)
[2016-04-23] MEDS: NAPROXEN 500 MG TABLET (FP) PO SCH ×2 (10:20→21:47)
[2016-04-23] MEDS: MINERAL OIL/PETROLAT/WATER TOPICAL CREAM 113 GM JAR TP SCH (21:47)
[2016-04-23] MEDS: QUEtiapine FUMARATE 100 MG TABLET (FP) PO SCH (21:47)
[2016-04-23] MEDS: THIAMINE HCL 100 MG TABLET (FP) PO SCH (21:47)
[2016-04-24] MEDS: BUDESONIDE/FORMETEROL FUMARATE 80/4.5 mcg INHALER IH SCH ×2 (10:07→22:02)
[2016-04-24] MEDS: NAPROXEN 500 MG TABLET (FP) PO SCH ×2 (10:08→22:02)
[2016-04-24] MEDS: QUEtiapine FUMARATE 50 MG TABLET PO SCH (10:08)
[2016-04-24] MEDS: PRENATAL VITAMINS W/ FOLIC ACID TABLET (FP) PO SCH (10:08)
[2016-04-24] MEDS: LIDOCAINE 5% TOPICAL PATCH TP SCH (14:18)
[2016-04-24] MEDS: QUEtiapine FUMARATE 100 MG TABLET (FP) PO SCH (22:02)
[2016-04-24] MEDS: THIAMINE HCL 100 MG TABLET (FP) PO SCH (22:02)
[2016-04-24] MEDS: MINERAL OIL/PETROLAT/WATER TOPICAL CREAM 113 GM JAR TP SCH (22:02)
[2016-04-25] MEDS: QUEtiapine FUMARATE 50 MG TABLET PO SCH (10:01)
[2016-04-25] MEDS: PRENATAL VITAMINS W/ FOLIC ACID TABLET (FP) PO SCH (10:01)
[2016-04-25] MEDS: LIDOCAINE 5% TOPICAL PATCH TP SCH (10:01)
[2016-04-25] MEDS: NAPROXEN 500 MG TABLET (FP) PO SCH ×2 (10:01→21:43)
[2016-04-25] MEDS: BUDESONIDE/FORMETEROL FUMARATE 80/4.5 mcg INHALER IH SCH ×2 (10:02→21:43)
[2016-04-25] MEDS: THIAMINE HCL 100 MG TABLET (FP) PO SCH (21:43)
[2016-04-25] MEDS: QUEtiapine FUMARATE 100 MG TABLET (FP) PO SCH (21:43)
[2016-04-25] MEDS: MINERAL OIL/PETROLAT/WATER TOPICAL CREAM 113 GM JAR TP SCH (21:43)
[2016-04-26] MEDS: NAPROXEN 500 MG TABLET (FP) PO SCH ×2 (10:10→21:40)
[2016-04-26] MEDS: LIDOCAINE 5% TOPICAL PATCH TP SCH (10:10)
[2016-04-26] MEDS: PRENATAL VITAMINS W/ FOLIC ACID TABLET (FP) PO SCH (10:10)
[2016-04-26] MEDS: QUEtiapine FUMARATE 50 MG TABLET PO SCH (10:10)
[2016-04-26] MEDS: BUDESONIDE/FORMETEROL FUMARATE 80/4.5 mcg INHALER IH SCH ×2 (10:11→21:39)
[2016-04-26] MEDS: THIAMINE HCL 100 MG TABLET (FP) PO SCH (21:39)
[2016-04-26] MEDS: MINERAL OIL/PETROLAT/WATER TOPICAL CREAM 113 GM JAR TP SCH (21:40)
[2016-04-26] MEDS: QUEtiapine FUMARATE 100 MG TABLET (FP) PO SCH (21:40)
[2016-04-27] MEDS: LIDOCAINE 5% TOPICAL PATCH TP SCH (09:51)
[2016-04-27] MEDS: BUDESONIDE/FORMETEROL FUMARATE 80/4.5 mcg INHALER IH SCH ×2 (09:51→21:42)
[2016-04-27] MEDS: NAPROXEN 500 MG TABLET (FP) PO SCH ×2 (09:51→21:42)
[2016-04-27] MEDS: QUEtiapine FUMARATE 50 MG TABLET PO SCH (09:51)
[2016-04-27] MEDS: PRENATAL VITAMINS W/ FOLIC ACID TABLET (FP) PO SCH (09:51)
--- NOTE | 2016-04-27 15:49 | PN ---
[facility] Progress Note Note: called for doctor to doctor review, patient was authorized 5-days
[2016-04-27] MEDS: QUEtiapine FUMARATE 100 MG TABLET (FP) PO SCH (21:42)
[2016-04-27] MEDS: MINERAL OIL/PETROLAT/WATER TOPICAL CREAM 113 GM JAR TP SCH (21:42)
[2016-04-27] MEDS: THIAMINE HCL 100 MG TABLET (FP) PO SCH (21:43)
[2016-04-28] MEDS: PRENATAL VITAMINS W/ FOLIC ACID TABLET (FP) PO SCH (09:36)
[2016-04-28] MEDS: NAPROXEN 500 MG TABLET (FP) PO SCH ×2 (09:36→21:43)
[2016-04-28] MEDS: LIDOCAINE 5% TOPICAL PATCH TP SCH (09:36)
[2016-04-28] MEDS: QUEtiapine FUMARATE 50 MG TABLET PO SCH (09:36)
[2016-04-28] MEDS: BUDESONIDE/FORMETEROL FUMARATE 80/4.5 mcg INHALER IH SCH ×2 (09:36→21:44)
[2016-04-28] MEDS: THIAMINE HCL 100 MG TABLET (FP) PO SCH (21:43)
[2016-04-28] MEDS: QUEtiapine FUMARATE 100 MG TABLET (FP) PO SCH (21:43)
[2016-04-28] MEDS: MINERAL OIL/PETROLAT/WATER TOPICAL CREAM 113 GM JAR TP SCH (21:47)
[2016-04-29] MEDS: QUEtiapine FUMARATE 50 MG TABLET PO SCH (09:33)
[2016-04-29] MEDS: NAPROXEN 500 MG TABLET (FP) PO SCH ×2 (09:33→21:48)
[2016-04-29] MEDS: BUDESONIDE/FORMETEROL FUMARATE 80/4.5 mcg INHALER IH SCH ×2 (09:33→21:48)
[2016-04-29] MEDS: PRENATAL VITAMINS W/ FOLIC ACID TABLET (FP) PO SCH (09:33)
[2016-04-29] MEDS: LIDOCAINE 5% TOPICAL PATCH TP SCH (09:33)
[2016-04-29] MEDS: QUEtiapine FUMARATE 100 MG TABLET (FP) PO SCH (21:48)
[2016-04-29] MEDS: diphenhydrAMINE HCL 50 MG CAPSULE PO PRN (21:49)
[2016-04-29] MEDS: MINERAL OIL/PETROLAT/WATER TOPICAL CREAM 113 GM JAR TP SCH (21:49)
[2016-04-29] MEDS: THIAMINE HCL 100 MG TABLET (FP) PO SCH (21:56)
[2016-04-30] MEDS: BUDESONIDE/FORMETEROL FUMARATE 80/4.5 mcg INHALER IH SCH ×2 (10:07→21:51)
[2016-04-30] MEDS: PRENATAL VITAMINS W/ FOLIC ACID TABLET (FP) PO SCH (10:07)
[2016-04-30] MEDS: LIDOCAINE 5% TOPICAL PATCH TP SCH (10:07)
[2016-04-30] MEDS: NAPROXEN 500 MG TABLET (FP) PO SCH ×2 (10:07→21:51)
[2016-04-30] MEDS: QUEtiapine FUMARATE 50 MG TABLET PO SCH (10:07)
[2016-04-30] MEDS: THIAMINE HCL 100 MG TABLET (FP) PO SCH (21:51)
[2016-04-30] MEDS: QUEtiapine FUMARATE 100 MG TABLET (FP) PO SCH (21:51)
[2016-04-30] MEDS: MINERAL OIL/PETROLAT/WATER TOPICAL CREAM 113 GM JAR TP SCH (21:51)
[2016-04-30] MEDS: COLLOIDAL OATMEAL 1 BAR EACH TP PRN (21:52)
[2016-05-01] MEDS: LIDOCAINE 5% TOPICAL PATCH TP SCH (10:16)
[2016-05-01] MEDS: NAPROXEN 500 MG TABLET (FP) PO SCH ×2 (10:16→21:53)
[2016-05-01] MEDS: PRENATAL VITAMINS W/ FOLIC ACID TABLET (FP) PO SCH (10:16)
[2016-05-01] MEDS: BUDESONIDE/FORMETEROL FUMARATE 80/4.5 mcg INHALER IH SCH ×2 (10:16→21:52)
[2016-05-01] MEDS: QUEtiapine FUMARATE 50 MG TABLET PO SCH (10:16)
[2016-05-01] MEDS: THIAMINE HCL 100 MG TABLET (FP) PO SCH (21:53)
[2016-05-01] MEDS: MINERAL OIL/PETROLAT/WATER TOPICAL CREAM 113 GM JAR TP SCH (21:53)
[2016-05-01] MEDS: QUEtiapine FUMARATE 100 MG TABLET (FP) PO SCH (21:53)
[2016-05-02 06:45] VITALS: BP 116/68; PULSE 65; TEMP 97.8
[2016-05-02] MEDS: BUDESONIDE/FORMETEROL FUMARATE 80/4.5 mcg INHALER IH SCH (10:08)
[2016-05-02] MEDS: NAPROXEN 500 MG TABLET (FP) PO SCH (10:08)
[2016-05-02] MEDS: QUEtiapine FUMARATE 50 MG TABLET PO SCH (10:08)
[2016-05-02] MEDS: PRENATAL VITAMINS W/ FOLIC ACID TABLET (FP) PO SCH (10:08)
[2016-05-02] MEDS: LIDOCAINE 5% TOPICAL PATCH TP SCH (10:09)
--- NOTE | 2016-05-02 12:04 | PN ---
Psychiatric Progress Note Vital Signs: Vital Signs Period Temp Pulse Resp BP Sys/Novak Pulse Ox Last 24 Hr 97.8 F 65 16-18 116/68 Date of Session: 05/02/16 Chief Complaint:: discharge visit HPI: Patient is addresssing cocaine, cannabis use comorbid Schizophrenia spectrum disorder with psychotic disorder type yet not identified. ROS: WNL Current Side Effect: No Lab tests ordered: No Lab tests reviewed: Yes Provider note:: Patient has completed today his treatment and met his goals, he will continue to address his issues at [facility] outpatient rehabilitation program. He focused on importance of changing attitudes for the utilization of supports to prevent relapses, he reports he learned a lot throught his treatment and motivated to maintain abstinence and adherent to every steps of his aftercare plans. Patient reports he feels better, denies auditory and visual hallucinations, medication well tolerated scripts provided, patient was encouraged to use alternative ways to cope with life stressors, patient is stable for discharge. Total face to face time:: 35 Mental Status Exam - Mental Status Exam Alert and Oriented to: Time, Place, Person Cognitive Function: Good Patient Appearance: Well Groomed Mood: Hopeful Affect: Appropriate, Mood Congruent Patient Behavior: Appropriate, Cooperative Speech Pattern: Appropriate Voice Loudness: Normal Thought Process: Goal Oriented Thought Disorder: Not Present Hallucinations: Denies Suicidal Ideation: Denies Homicidal Ideation: Denies Insight/Judgement: Fair Sleep: Fair Appetite: Fair Muscle strength/Tone: Normal Gait/Station: Normal Psychiatric Treatment Plan - Problem List (1) Asthma Qualifiers: Asthma severity: mild persistent Asthma complication type: with status asthmaticus Qualified Code(s): J45.32 - Mild persistent asthma with status asthmaticus (4) Nicotine dependence Qualifiers: Nicotine product type: cigarettes Substance use status: uncomplicated Qualified Code(s): F17.210 - Nicotine dependence, cigarettes, uncomplicated
== END 2016-05-02 11:00 | disposition home or self-care (01) | DRG 772 ==
LOC: YASAS 11:51 → Y5N 18:00
PROVIDERS: ADMIT Psychiatry & Neurology Psychiatry; ATTEND Psychiatry & Neurology Psychiatry
PROC: HZ42ZZZ Group Counseling for Substance Abuse Treatment, Cognitive-Behavioral (ICD-10-PCS; principal; 2016-05-02)
DX: F14.20 Cocaine dependence, uncomplicated (principal); F12.20 Cannabis dependence, uncomplicated; F17.210 Nicotine dependence, cigarettes, uncomplicated; F20.89 Other schizophrenia; J45.32 Mild persistent asthma with status asthmaticus; R63.4 Abnormal weight loss; Z68.22 Body mass index [BMI] 22.0-22.9, adult; Z98.890 Other specified postprocedural states
CPT/HCPCS: 36415; 80053; 81003; 81015; 85027; 86593; 87389; 93005; 93010